=== PATIENT | female | born 1965 | race Caucasian/White ===

== ENCOUNTER 2018-05-18 03:40 | Emergency (ER) | payer OTHER ==
[~2018-05-18] VITALS: Ht 167.6 cm; Wt 70.6 kg
[2018-05-18] MEDS ORDERED: fentaNYL/PF 50MCG/1 ML 2ML syringe IV ONE ×2 (03:55→04:15)
[2018-05-18] MEDS ORDERED: ondansetron/PF 4mg/2ml inj IV ONE (03:55)
[2018-05-18] MEDS ORDERED: normal saline 1000ML IV soln IVB ONE (03:55)
[2018-05-18] MEDS ORDERED: ketorolac trometh. 30mg/ml inj. IV ONE (04:15)
[2018-05-18 05:02] LABS: BASOPHILS % (AUTO) 0.5 % (0-1); EOSINOPHILS # (AUTO) 0.1 X10'3 (0-0.9); EOSINOPHILS % (AUTO) 1.3 % (0-6); HEMATOCRIT 39.1 % (35.0-45.0); HEMOGLOBIN 12.9 g/dl (12.0-16.0); LYMPHOCYTES % (AUTO) 25.3 % (21-51); MEAN CORPUSCULAR HEMOGLOBIN 28.5 PG (27.0-31.0); MEAN CORPUSCULAR VOLUME 86.4 FL (78-98); MEAN PLATELET VOLUME 9.4 FL (7.4-10.4); MONOCYTES # (AUTO) 0.9 X10'3 (0-0.9); MONOCYTES % (AUTO) 11.8 % (2-12); NEUTROPHILS # (AUTO) 4.9 X10'3 (1.8-7.7); NEUTROPHILS % (AUTO) 61.1 % (42-75); PLATELET COUNT 253 X10'3 (140-440); RED BLOOD COUNT 4.53 X10'6 (4.20-5.60); RED CELL DISTRIBUTION WIDTH 13.9 % (11.5-14.5); WHITE BLOOD COUNT 7.9 X10'3 (4.5-11.0)
[2018-05-18 05:05] LABS: PROTHROMBIN TIME 10.8 SECONDS (9.0-12.0)
[2018-05-18 05:11] LABS: ALANINE AMINOTRANSFERASE 26 U/L (12-78); ALBUMIN 3.4 G/DL (3.4-5.0); ALKALINE PHOSPHATASE 69 IU/L (46-116); ANION GAP 8 (8-16); ASPARTATE AMINO TRANSFERASE 15 U/L (10-37); BILIRUBIN,TOTAL 0.5 MG/DL (0.1-1.0); BLOOD UREA NITROGEN 12 MG/DL (7-18); BUN/CREATININE RATIO 15.2 (6.6-38.0); CALCIUM 8.5 MG/DL (8.5-10.1); CHLORIDE 107 MMOL/L (99-107); CREATININE 0.79 MG/DL (0.40-0.90); GLUCOSE 108 MG/DL (70-104); POTASSIUM 3.3 MMOL/L (3.5-5.1); SODIUM 142 MMOL/L (135-145); TOTAL CARBON DIOXIDE 26.6 MMOL/L (24-32); TOTAL PROTEIN 6.8 G/DL (6.4-8.2); eGFR 77 ML/MIN
[2018-05-18 05:17] LABS: BETA HCG,QUANTITATIVE < 1.0 mIU/ml
[2018-05-18] MEDS ORDERED: FLO0.4C PO (05:41)
[2018-05-18] MEDS ORDERED: HYDR-3965 PO (05:41)
[2018-05-18 05:47] VITALS: BP 109/69
== END 2018-05-18 05:55 | disposition home or self-care (01) ==
LOC: ER 03:41
DX: N13.2 Hydronephrosis with renal and ureteral calculous obstruction (principal); N23 Unspecified renal colic; I10 Essential (primary) hypertension; Z79.899 Other long term (current) drug therapy
CPT/HCPCS: 36415; 74176; 80053; 84702; 85025; 85610; 96361; 96374; 96375; 99285; J1885; J2405; J3010; J7030

== ENCOUNTER 2018-07-30 03:02 | Emergency (ER) | payer MEDICAID ==
[~2018-07-30] VITALS: Ht 167.6 cm; Wt 68.1 kg
[2018-07-30] MEDS ORDERED: ketorolac trometh. 30mg/ml inj. IV ONE (03:10)
[2018-07-30] MEDS ORDERED: normal saline 1000ML IV soln IVB ONE (03:10)
[2018-07-30] MEDS ORDERED: ondansetron/PF 4mg/2ml inj IV ONE (03:10)
[2018-07-30] MEDS: morphine 4 MG/ML inj SYRINge IV PRN ×2 (03:52→05:14)
[2018-07-30 03:54] LABS: BASOPHILS % (AUTO) 0.4 % (0-1); EOSINOPHILS # (AUTO) 0.2 X10'3 (0-0.9); EOSINOPHILS % (AUTO) 2.1 % (0-6); HEMATOCRIT 43.8 % (35.0-45.0); HEMOGLOBIN 14.4 g/dl (12.0-16.0); LYMPHOCYTES # (AUTO) 2.6 X10'3 (1.1-4.8); LYMPHOCYTES % (AUTO) 28.3 % (21-51); MEAN CORPUSCULAR HEMOGLOBIN 28.4 PG (27.0-31.0); MEAN CORPUSCULAR HGB CONC 32.9 % (33.0-36.5); MEAN CORPUSCULAR VOLUME 86.5 FL (78-98); MONOCYTES # (AUTO) 0.8 X10'3 (0-0.9); MONOCYTES % (AUTO) 8.6 % (2-12); NEUTROPHILS # (AUTO) 5.6 X10'3 (1.8-7.7); NEUTROPHILS % (AUTO) 60.6 % (42-75); PLATELET COUNT 285 X10'3 (140-440); RED BLOOD COUNT 5.07 X10'6 (4.20-5.60); RED CELL DISTRIBUTION WIDTH 13.6 % (11.5-14.5); WHITE BLOOD COUNT 9.2 X10'3 (4.5-11.0)
[2018-07-30] MEDS ORDERED: LORazepam 2 mg/ml vial IV ONE (03:55)
[2018-07-30] MEDS ORDERED: morphine 4 MG/ML inj SYRINge IV ONE (04:05)
[2018-07-30 04:09] LABS: ALANINE AMINOTRANSFERASE 25 U/L (12-78); ALKALINE PHOSPHATASE 87 IU/L (46-116); ANION GAP 9 (8-16); ASPARTATE AMINO TRANSFERASE 19 U/L (10-37); BILIRUBIN,TOTAL 0.4 MG/DL (0.1-1.0); BLOOD UREA NITROGEN 9 MG/DL (7-18); BUN/CREATININE RATIO 11.4 (6.6-38.0); CALCIUM 9.5 MG/DL (8.5-10.1); CHLORIDE 104 MMOL/L (99-107); CREATININE 0.79 MG/DL (0.40-0.90); GLUCOSE 91 MG/DL (70-104); LIPASE 83 U/L (73-393); POTASSIUM 3.3 MMOL/L (3.5-5.1); SODIUM 143 MMOL/L (135-145); TOTAL CARBON DIOXIDE 29.7 MMOL/L (24-32); TOTAL PROTEIN 8.1 G/DL (6.4-8.2); eGFR 77 ML/MIN
[2018-07-30 05:18] VITALS: BP 110/71
[2018-07-30] MEDS ORDERED: diphenhydrAMINE 50 mg/ml inj IV ONE (05:25)
[2018-07-30] MEDS ORDERED: metoclopramide 5 mg/ml inj IV ONE (05:25)
[2018-07-30] MEDS ORDERED: HYDR-3965 PO (05:37)
[2018-07-30] MEDS ORDERED: ONDA4TAB12 PO (05:37)
[2018-07-30 05:48] LABS: CLARITY,URINE SLIGHTLY CLOUDY (Clear); COLOR,URINE YELLOW (Yellow); GLUCOSE, URINE NEGATIVE (Neg); KETONES,URINE NEGATIVE (Neg); LEUKOCYTE ESTERASE ,URINE NEGATIVE (Neg); NITRITES, URINE NEGATIVE (Neg); OCCULT BLOOD,URINE LARGE (Neg); PROTEIN,URINE NEGATIVE (Neg); UROBILINOGEN,URINE 0.2 E.U/dL (0.2-1.0)
[2018-07-30 05:52] LABS: UA COLLECTION TYPE CLN CATCH MIDSTREAM
[2018-07-30 05:57] LABS: BACTERIA,URINE NONE SEEN /HPF (Neg); MUCUS STRANDS NONE SEEN /LPF (Neg); RBC,URINE 20-50 /HPF (0-2); SQUAMOUS EPITHELIAL CELL,UR FEW /LPF (FEW); WBC,URINE 0-4 /HPF (0-4); YEAST FEW /HPF (NEGATIVE)
== END 2018-07-30 06:37 | disposition home or self-care (01) ==
LOC: ER 03:02
DX: N23 Unspecified renal colic (principal); I10 Essential (primary) hypertension; Z87.442 Personal history of urinary calculi
CPT/HCPCS: 36415; 74176; 80053; 81001; 83690; 85025; 87088; 96374; 96375; 96376; 99285; J1200; J1885; J2060; J2270; J2405; J2765

== ENCOUNTER 2023-11-15 16:21 | Emergency (ER) | payer MEDICAID ==
[~2023-11-15 16:21] MED LIST: ONDA4TAB12 PO
[2023-11-15 16:43] VITALS: BP 133/75; PULSE 96; TEMP 99; O2SAT 99
[2023-11-15] MEDS ORDERED: HYDR-3965 PO (19:04)
[2023-11-15 19:12] VITALS: RESP 18
[2023-11-15] MEDS: HYDROcodone/acetaminophen 10/325mg tab PO ONE (19:12)
== END 2023-11-15 19:50 | disposition home or self-care (01) ==
LOC: ER 16:21
DX: K08.89 Other specified disorders of teeth and supporting structures (principal); I10 Essential (primary) hypertension; M54.2 Cervicalgia; Z79.899 Other long term (current) drug therapy
CPT/HCPCS: 70360; 99283

== ENCOUNTER 2025-01-20 06:48 | Outpatient (CLI) | payer MEDICAID ==
[~2025-01-20 06:48] MED LIST changes: +ONDA-243 PO; -ONDA4TAB12 PO
[2025-01-20 07:59] VITALS: PULSE 60; RESP 16; O2SAT 98
== END 2025-01-20 23:59 | disposition home or self-care (01) ==
LOC: RT 06:48
PROVIDERS: ATTEND Family Medicine
DX: R05.9 Cough, unspecified (principal); J98.8 Other specified respiratory disorders
CPT/HCPCS: 94010; 94760

== ENCOUNTER 2025-04-05 10:59 | Outpatient (CLI) | payer MEDICAID ==
--- NOTE | 2025-04-05 12:11 | RADIOLOGY REPORT ---
EXAM: CT CT SINUS HISTORY: CHRONIC COUGH AND SINUS PRESSURE COMPARISON: None TECHNIQUE: Noncontrast axial CT images of the paranasal sinuses were performed. Coronal and sagittal reformatted images were obtained. Radiation dose: CTDIvol 54.49 mGy, DLP 943.16 mGy*cm. This CT exam was performed using one or more of the following dose reduction techniques: Automated ex posure control, adjustment of the mA and/or kV according to patient size, or use of iterative reconst ruction technique. FINDINGS: There are mucous retention cysts in the caudal portion of the bilateral maxillary sinuses. The other paranasal sinuses are clear. No facial bone fractures are identified. The nasal septum is m idline. The OMCs are patent. There is paradoxical curvature of the bilateral middle turbinates. No co ncha bullosa or Cassidy cells. The mastoid air cells and middle ear spaces are clear. There is pneumat ization of the petrous apices. IMPRESSION: Mild bilateral maxillary sinus disease. The other paranasal sinuses are clear.
== END 2025-04-05 23:59 | disposition home or self-care (01) ==
LOC: RAD 10:59
PROVIDERS: ATTEND Family Medicine
DX: J32.0 Chronic maxillary sinusitis (principal); R05.9 Cough, unspecified; J34.1 Cyst and mucocele of nose and nasal sinus
CPT/HCPCS: 70486